=== PATIENT | female | born 1970 | race Caucasian/White ===

== ENCOUNTER 2017-07-30 06:37 | Emergency (ER) | payer OTHER ==
[2017-07-30 07:41] LABS: URINE PH (Dip) POC 6.5 (5.0-8.5)
[2017-07-30 07:41] LABS: URINE BLOOD (Dip) POC Negative (NEGATIVE); URINE GLUCOSE (Dip) POC Negative (NEGATIVE); URINE KETONES (Dip) POC Negative (NEGATIVE); URINE LEUKOCYTE EST (Dip) POC Negative (NEGATIVE); URINE NITRITE (Dip) POC Negative (NEGATIVE); URINE TOTAL PROTEIN POC Negative (NEGATIVE)
[2017-07-30] MEDS: KETOROLAC 30 MG INJ IM (07:52)
== END 2017-07-30 09:14 | disposition home or self-care (01) ==
LOC: FTE 06:37
DX: S39.92XA Unspecified injury of lower back, initial encounter (principal); X58.XXXA Exposure to other specified factors, initial encounter; Y92.9 Unspecified place or not applicable
CPT/HCPCS: 81003; 81025; 96372; 99284-25